=== PATIENT | female | born 1945 | race Caucasian/White ===

== ENCOUNTER 2017-04-05 20:20 | Observation (INO) | payer BC, OTHER ==
[2017-04-05] MEDS ORDERED: Ondansetron INJ* 2 MG/ML VIAL IV ONE (21:37)
[2017-04-05] MEDS ORDERED: Labetalol IV* 5 MG/ML 20 ML VIAL IV PUSH ONE ×2 (21:46→22:29)
[2017-04-05] MEDS: NS 0.9% 1000 ML* 1,000 ML IV SCH (21:59)
[2017-04-05 22:16] LABS: Hematocrit 45 % (35-47); Hemoglobin 15.1 g/dl (12.0-16.0); Mean Corpuscular HGB Conc 34 g/dl (31-36); Mean Corpuscular Hemoglobin 29 pg (27-31); Mean Corpuscular Volume 87 fL (80-97); Mean Platelet Volume 8 um3 (7.4-10.4); Red Blood Count 5.11 10^6/ul (4.0-5.4); Red Cell Distribution Width 14 % (10.5-15); White Blood Count 6.7 10^3/ul (3.5-10.8)
[2017-04-05 22:27] LABS: Albumin 4.3 g/dL (3.2-5.2); C Reactive Protein 2.25 mg/L (< 5.00); Calcium 9.9 mg/dL (8.6-10.3); EGFR African American 89.6 (>60); EGFR Non-African American 69.7 (>60); Globulin 2.7 g/dL (2-4); Magnesium 1.9 mg/dL (1.9-2.7); Potassium 3.8 mmol/L (3.5-5.0); Total Bilirubin 0.8 mg/dL (0.2-1.0)
[2017-04-05 22:48] LABS: TSH (Thyroid Stimulating Horm) 1.11 mcIU/mL (0.34-5.60)
--- NOTE | 2017-04-05 23:00 | ED ---
Elizabeth Sprague Rebecca, scribed for Dennis Villa MD on 04/05/17 at 2145 . Headache - HPI Summary HPI Summary: Pt is a 71 y/o F who presents to ED c/o AVALOS. Sx began gradually at approximately 1300 this afternoon and has been predominantly located in the occipital region, though it is now frontal. Pain alternates between 8-9/10 and is characterized as throbbing with sx aggravated and alleviated by nothing. Additionally c/o hypertension with SBP in the 200s along with N/V. Denies visual, speech, hearing or swallowing changes, numbness, weakness, tingling, numbness, unsteady gait, CP, abd pain, back pain and SOB. Pt was referred to [facility] ED by Dr. Matos today. PMHx HTN. - History Of Current Complaint Chief Complaint: EDHeadache Stated Complaint: HEADACHE/VOMITING Time Seen by Provider: 04/05/17 21:39 Hx Obtained From: Patient Onset/Duration: Gradual Onset, Still Present Currently Pain Is: Severe - 8-9/10 Character: Throbbing Location of Headache: Frontal, Occipital Aggravating Factor: Nothing Allevating Factors: Nothing Associated Signs And Symptoms: Nausea, Vomiting, Other (Noted In Comments) - Hypertension - Allergies/Home Medications Allergies/Adverse Reactions: Allergies Allergy/AdvReac Type Severity Reaction Status Date / Time Morphine Allergy Intermediate Nausea And Verified 04/05/17 20:46 Vomiting Sulfa Drugs Allergy Intermediate Airway Verified 04/05/17 20:46 Obstruction PMH/Surg Hx/FS Hx/Imm Hx Endocrine/Hematology History: Reports: Hx Thyroid Disease - hypothyroid Denies: Hx Diabetes Cardiovascular History: Reports: Hx Atrial Fibrillation, Hx Hypertension Denies: Hx Pacemaker/ICD Respiratory History: Denies: Hx Asthma, Hx Chronic Obstructive Pulmonary Disease (COPD) GI History: Denies: Hx Ulcer History: Denies: Hx Renal Disease Sensory History: Reports: Hx Hearing Aid Psychiatric History: Denies: Hx Panic Disorder - Cancer History Hx Chemotherapy: No Hx Radiation Therapy: No - Surgical History Surgery Procedure, Year, and Place: VEIN STRIPPING BILATERAL; BREAST BENIGN BIOPSY, RT WRIST HARWARE PUT IN AND REMOVED, LAPROSCOPY Infectious Disease History: No Infectious Disease History: Reports: Hx Shingles - left flank, ~ 20 years ago Denies: Hx Clostridium Difficile, Hx Hepatitis, Hx Human Immunodeficiency Virus (HIV), Hx of Known/Suspected MRSA, Hx Tuberculosis - had vaccine, Hx Known /Suspected VRE, Hx Known/Suspected VRSA, History Other Infectious Disease, Traveled Outside the [place] in Last 30 Days - Family History Known Family History: Positive: Hypertension Negative: Cardiac Disease, Diabetes - Social History Alcohol Use: None Hx Substance Use: No Substance Use Type: Reports: None Hx Tobacco Use: No Smoking Status (MU): Never Smoked Tobacco Review of Systems Positive: Other - Hypertension Positive: Other - Negative: visual changes Positive: Other - Negative: hearing and swallowing changes Negative: Chest Pain Negative: Shortness Of Breath Positive: Vomiting, Nausea. Negative: Abdominal Pain Positive: Other - NEGATIVE: back pain Neurological: Other - NEGATIVE: tingling, unsteady gait Positive: Headache. Negative: Weakness, Numbness All Other Systems Reviewed And Are Negative: Yes Physical Exam Triage Information Reviewed: Yes Vital Signs On Initial Exam: Initial Vitals Temp Pulse Resp BP Pulse Ox 97.5 F 79 16 209/96 99 04/05/17 20:41 04/05/17 20:41 04/05/17 20:41 04/05/17 20:41 04/05/17 20:41 Vital Signs Reviewed: Yes Appearance: Positive: Well-Appearing, No Pain Distress Skin: Positive: Skin Color Reflects Adequate Perfusion Head/Face: Positive: Normal Head/Face Inspection Eyes: Positive: EOMI, PAGE ENT: Positive: Normal ENT inspection Neck: Positive: Nontender Respiratory/Lung Sounds: Positive: Clear to Auscultation, Breath Sounds Present Cardiovascular: Positive: RRR. Negative: Murmur Abdomen Description: Positive: Nontender Musculoskeletal: Positive: Strength/ROM Intact Neurological: Positive: Sensory/Motor Intact, Alert, Oriented to Person Place, Time, CN Intact II-III, Finger to Nose - normal, Speech Normal. Negative: Receptive Aphasia, Expressive Aphasia Psychiatric: Positive: Normal - Ba Coma Scale Best Eye Response: 4 - Spontaneous Best Motor Response: 6 - Obeys Commands Best Verbal Response: 5 - Oriented Coma Scale Total: 15 Diagnostics - Vital Signs Vital Signs Temp Pulse Resp BP Pulse Ox 04/05/17 20:41 97.5 F 79 16 209/96 99 - Laboratory Result Diagrams: 04/05/17 21:58 04/05/17 21:58 Lab Statement: Any lab studies that have been ordered have been reviewed, and results considered in the medical decision making process. Re-Evaluation - Re-Evaluation First Eval Re-Evaluation Time: 22:30 Change: Unchanged Comment: the patient received 10 mg of labetalol. Neuro exam still non focal. Her headache is unchanged, and her BP is little changed. 190/90. Will give 20 mg IV labetalol now. Second Eval Re-Evaluation Time: 22:49 Change: Improved Comment: She reports the pulsing is gone now from her headache and it is improving. Her BP is now 167/70s after getting the extra 20 mg of labetalol. At this point will wait on giving more labetalol to see Headache Course/Dx - Course Course Of Treatment: 71 yr old female with hypertensive urgency and headache . Admit to hospitalists for further management. - Diagnoses Provider Diagnoses: Hypertensive urgency, Headache - Physician Notifications Discussed Care Of Patient With: Joey Caballero Time Discussed With Above Provider: 22:33 - Critical Care Time Critical Care Time: 30-74 min Discharge - Discharge Plan Condition: Good Disposition: OTHER Discharge Disposition Comment: sign out Dr Cabrera at [address] pend and dispo pending Referrals: Lele Matos MD [Primary Care Provider] - The documentation as recorded by the Elizabeth benjamin Rebecca accurately reflects the service I personally performed and the decisions made by me, Dennis Villa MD.
--- NOTE | 2017-04-05 23:51 | HP ---
H&P (Free Text) History and Physical: PCP: Shawn Matos MD Date/Time: 04/05/2017 5023 CC: occipital AVALOS w/ vomiting HPI: Mrs De Anda is a 71YO female HX AFIB, SVT, HTN who after exercising experienced the gradual onset around 1300 of an initially occipital headache which became severe rated at 8-9/10, migrated to the frontal area, and became associated with N/V, but no photophobia. She denies chest pain, SOB, visual changes, focal W/N/T, change in speech/swallow, or other issues. There were no identified exacerbating or alleviating factors. She was found to be quite hypertensive with a systolic in the 200s and treatment for this improved her headache. PMedHx AFIB, paroxysmal SVT syncope HTN hypothyroidism osteoporosis Ambulatory Orders Levothyroxine TAB* [Synthroid 25 MCG TAB*] 25 mcg PO EVERY OTHER DAY 09/23/15 Levothyroxine TAB* [Synthroid TAB*] 50 mcg PO EVERY OTHER DAY 09/23/15 Calcium 1,200 mg PO DAILY 06/14/16 Cholecalciferol [Vitamin D-3] 2,000 unit PO DAILY 06/14/16 Zolpidem TAB* [Ambien*] 2.5 mg PO BEDTIME PRN 06/14/16 Apixaban* [Eliquis*] 5 mg PO BID 04/05/17 Flecainide TAB(NF) 50 mg PO BID 04/05/17 Teriparatide (Recombinant) [Forteo] 600 mcg SC DAILY 04/05/17 Allergies Morphine Allergy (Intermediate, Verified 04/05/17 20:46) Nausea And Vomiting Sulfa Drugs Allergy (Intermediate, Verified 04/05/17 20:46) Airway Obstruction Pt states occurred many years ago, states she felt her throat was constricted but did not consider this a severe reaction, did not require medication to resolve. PSurgHx tonsillectomy implanted owner ORIF R wrist BLE vein stripping SocHx: no tobacco, alcohol, or recreational drugs; FamHx: Mother passed in her 80's 2nd "just stopped eating". Father passed in his 70s 2nd "heart condition". Younger brother passed 2nd complications of a knife attack. ROS: as above, otherwise reviewed and all were negative vitals: Vital Signs Temp 36.4 C 04/05/17 20:41 Pulse 88 04/05/17 23:01 Resp 26 04/05/17 23:01 BP 163/78 04/05/17 22:45 Pulse Ox 99 04/05/17 23:01 Intake & Output 04/05/17 04/05/17 04/06/17 11:59 23:59 11:59 Weight 49.895 kg Constitutional: NAD, normally developed, well-nourished white female HEENM: atraumatic; sclera/conjunctiva: non-icteric/clear; hearing: clinically mildly decreased; oropharynx: clear, mucosa moist Neck: soft tissue: non-tender; thyroid: normal Pulmonary: clear to auscultation bilaterally, good aeration, no accessory muscle use CV: TIR/IR, normal S1S2, no carotid bruit, no jugular venous distention, 2+ B DP /PT, no edema Abdominal: soft, non-distended, non-tender, no rebound/guarding/rigidity, normoactive bowel sounds, no hepatosplenomegaly or masses, no costovertebral angle tenderness Musculoskeletal: general: grossly intact; gait: stable Integumental: normal appearance and texture of exposed skin Psychiatric orientation: AA&O to PPS affect: calm mood: cooperative eye contact: good to fair content: reliable responses: timely insight: good Testing: Lab Results 04/05/17 04/05/17 04/05/17 Range/Units 21:40 21:58 21:58 WBC (3.5-10.8) 10^3/ul RBC (4.0-5.4) 10^6/ul Hgb (12.0-16.0) g/dl Hct (35-47) % MCV (80-97) fL MCH (27-31) pg MCHC (31-36) g/dl RDW (10.5-15) % Plt Count (150-450) 10^3/ul MPV (7.4-10.4) um3 Neut % (Auto) (38-83) % Lymph % (Auto) (25-47) % [place] % (Auto) (1-9) % Eos % (Auto) (0-6) % Baso % (Auto) (0-2) % Absolute Neuts (auto) (1.5-7.7) 10^3/ul Absolute Lymphs (auto) (1.0-4.8) 10^3/ul Absolute Monos (auto) (0-0.8) 10^3/ul Absolute Eos (auto) (0-0.6) 10^3/ul Absolute Basos (auto) (0-0.2) 10^3/ul Absolute Nucleated RBC 10^3/ul Nucleated RBC % INR (Anticoag Therapy) 0.97 (0.89-1.11) APTT 29.6 (26.0-36.3) seconds Sodium 136 (133-145) mmol/L Potassium 3.8 (3.5-5.0) mmol/L Chloride 96 L (101-111) mmol/L Carbon Dioxide 31 (22-32) mmol/L Anion Gap 9 (2-11) mmol/L BUN 17 (6-24) mg/dL Creatinine 0.81 (0.51-0.95) mg/dL Est GFR ( Amer) 89.6 (>60) Est GFR (Non-Af Amer) 69.7 (>60) BUN/Creatinine Ratio 21.0 H (8-20) Glucose 127 H (70-100) mg/dL Lactic Acid (0.5-2.0) mmol/L Calcium 9.9 (8.6-10.3) mg/dL Magnesium 1.9 (1.9-2.7) mg/dL Total Bilirubin 0.80 (0.2-1.0) mg/dL AST 26 (13-39) U/L ALT 18 (7-52) U/L Alkaline Phosphatase 71 (34-104) U/L Troponin I 0.00 (<0.04) ng/mL C-Reactive Protein 2.25 (< 5.00) mg/L Total Protein 7.0 (6.4-8.9) g/dL Albumin 4.3 (3.2-5.2) g/dL Globulin 2.7 (2-4) g/dL Albumin/Globulin Ratio 1.6 (1-3) TSH 1.11 (0.34-5.60) mcIU/mL Urine Color Straw Urine Appearance Clear Urine pH 8.0 (5-9) Ur Specific [place] 1.008 L (1.010-1.030) Urine Protein Negative (Negative) Urine Ketones Trace H (Negative) Urine Blood Negative (Negative) Urine Nitrate Negative (Negative) Urine Bilirubin Negative (Negative) Urine Urobilinogen Negative (Negative) Ur Leukocyte Esterase Negative (Negative) Urine Glucose 1+(50 mg/dl) H (Negative) 04/05/17 04/05/17 Range/Units 21:58 21:58 WBC 6.7 (3.5-10.8) 10^3/ul RBC 5.11 (4.0-5.4) 10^6/ul Hgb 15.1 (12.0-16.0) g/dl Hct 45 (35-47) % MCV 87 (80-97) fL MCH 29 (27-31) pg MCHC 34 (31-36) g/dl RDW 14 (10.5-15) % Plt Count 273 (150-450) 10^3/ul MPV 8 (7.4-10.4) um3 Neut % (Auto) 79.3 (38-83) % Lymph % (Auto) 12.1 L (25-47) % [place] % (Auto) 7.8 (1-9) % Eos % (Auto) 0.6 (0-6) % Baso % (Auto) 0.2 (0-2) % Absolute Neuts (auto) 5.3 (1.5-7.7) 10^3/ul Absolute Lymphs (auto) 0.8 L (1.0-4.8) 10^3/ul Absolute Monos (auto) 0.5 (0-0.8) 10^3/ul Absolute Eos (auto) 0 (0-0.6) 10^3/ul Absolute Basos (auto) 0 (0-0.2) 10^3/ul Absolute Nucleated RBC 0 10^3/ul Nucleated RBC % 0 INR (Anticoag Therapy) (0.89-1.11) APTT (26.0-36.3) seconds Sodium (133-145) mmol/L Potassium (3.5-5.0) mmol/L Chloride (101-111) mmol/L Carbon Dioxide (22-32) mmol/L Anion Gap (2-11) mmol/L BUN (6-24) mg/dL Creatinine (0.51-0.95) mg/dL Est GFR ( Amer) (>60) Est GFR (Non-Af Amer) (>60) BUN/Creatinine Ratio (8-20) Glucose (70-100) mg/dL Lactic Acid 0.9 (0.5-2.0) mmol/L Calcium (8.6-10.3) mg/dL Magnesium (1.9-2.7) mg/dL Total Bilirubin (0.2-1.0) mg/dL AST (13-39) U/L ALT (7-52) U/L Alkaline Phosphatase (34-104) U/L Troponin I (<0.04) ng/mL C-Reactive Protein (< 5.00) mg/L Total Protein (6.4-8.9) g/dL Albumin (3.2-5.2) g/dL Globulin (2-4) g/dL Albumin/Globulin Ratio (1-3) TSH (0.34-5.60) mcIU/mL Urine Color Urine Appearance Urine pH (5-9) Ur Specific [place] (1.010-1.030) Urine Protein (Negative) Urine Ketones (Negative) Urine Blood (Negative) Urine Nitrate (Negative) Urine Bilirubin (Negative) Urine Urobilinogen (Negative) Ur Leukocyte Esterase (Negative) Urine Glucose (Negative) ECG, personally reviewed: NSR rate 77, no ischemia; recheck ECG for rhythm change: AFIB RVR CT brain WO, personally reviewed: No acute brain parenchymal abnormality. No hemorrhage, mass, or acute territorial infarct. Age-related involutional changes and chronic small vessel ischemic changes, including basal ganglia hypodensities that are similar to signal abnormalities sen on 12/02/2011 MRI. Clear visualized paranasal sinuses. Visualized mastoid air cells clear. Impression: 71F presenting with hypertensive urgency, systolic >200 associated with occipital headache & N/V DIAGNOSIS & PLAN Primary hypertensive urgency : maintain BP <170 overnight : pain control : anti-emetics : supplemental oxygen : supportive care AFIB, paroxysmal w/ RVR : AFIB/RVR developed after labetalol 10mg x1 & 20mg x1 : metoprolol IV PRN for rate control : once in AFIB systolic decreased to 110s w/o neurologic symptoms Secondary HX SVT : no acute issues HTN : review meds once reconciled hypothyroidism : continue levothyroxine Admission Rational: CDU observation for hypertensive urgency DVTp: SCDs Code Status: full HCP:
[2017-04-05 23:56] LABS: Urine Bilirubin Negative (Negative); Urine Glucose 1+(50 mg/dL) (Negative); Urine Nitrite Negative (Negative)
[2017-04-06] MEDS ORDERED: hydrALAZINE IV* 20 MG/ML VIAL IV PRN (00:04)
[2017-04-06] MEDS ORDERED: HYDROmorphone INJ* 1 MG/ML CARPUJECT SYRINGE IV PRN (00:04)
[2017-04-06] MEDS ORDERED: Acetaminophen TAB* 325 MG PO PRN (00:04)
[2017-04-06] MEDS ORDERED: CMCS:Melatonin (NF) 3 MG TAB PO PRN (00:04)
[2017-04-06] MEDS ORDERED: Zolpidem TAB* 5 MG PO PRN (00:08)
[2017-04-06] MEDS ORDERED: traMADol TAB* 50 MG PO PRN (00:18)
[2017-04-06] MEDS ORDERED: Ondansetron INJ* 2 MG/ML VIAL IV PRN (00:18)
[2017-04-06] MEDS ORDERED: Metoprolol Tartrate IV* 1 MG/ML 5 ML VIAL IV ONE ×2 (01:01)
[2017-04-06] MEDS ORDERED: Metoprolol Tartrate IV* 1 MG/ML 5 ML VIAL IV PRN (01:04)
[2017-04-06] MEDS: NS 0.9% 1000 ML* 1,000 ML IV SCH (01:46)
[2017-04-06] MEDS ORDERED: Omeprazole CAP* 20 MG PO SCH (06:00)
[2017-04-06] MEDS ORDERED: Levothyroxine TAB* 50 MCG TAB PO SCH (06:00)
--- NOTE | 2017-04-06 07:44 | RAD ---
HISTORY: Headache COMPARISONS: MRI dated December 02, 2011 TECHNIQUE: Multiple contiguous axial CT scans were obtained of the head without intravenous contrast. FINDINGS: HEMORRHAGE/INFARCT: There is no hemorrhage or acute infarct. MASSES/SHIFT: There is no mass or shift. EXTRA-AXIAL SPACES: There are no extra-axial fluid collections. SULCI AND VENTRICLES: The sulci and ventricles are normal in size and position for the patient's stated age. CEREBRUM: There is patchy hypoattenuation of the periventricular and subcortical white matter, corresponding to T2 signal abnormalities noted on the previous MRI.. BRAINSTEM: There are no focal parenchymal abnormalities. CEREBELLUM: There are no focal parenchymal abnormalities. VESSELS: The vessels are grossly normal. PARANASAL SINUSES: The paranasal sinuses are clear. ORBITS: The orbits are unremarkable. BONES AND SOFT TISSUE: No bone or soft tissue abnormalities are noted. OTHER: None IMPRESSION: NO ACUTE INTRACRANIAL PATHOLOGY. CHRONIC SMALL VESSEL ISCHEMIC CHANGES.
[2017-04-06 07:53] VITALS: BP 120/57
[2017-04-06] MEDS ORDERED: Docusate CAP* 100 MG PO SCH (09:00)
[2017-04-06] MEDS ORDERED: Flecainide TAB* 100 MG PO SCH (09:00)
[2017-04-06] MEDS ORDERED: Metoprolol Succinate XL TAB* 25 MG PO SCH (09:00)
[2017-04-06] MEDS ORDERED: Apixaban* 5 MG TAB PO SCH (09:00)
--- NOTE | 2017-04-06 13:35 | DS ---
CC: Dr. Matos; Dr. 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 She felt fine, it was not particularly stressful. This is a normal activity for her. She went to a [employer] class in an unheated gym, there was a large fan. She said this was not particularly difficult or any problem. She left the class and walked through campus. It was a very hot day. She developed mild headache. She drove herself home. She thought she would work in her home office; however, the headache became more severe. She had nausea and vomiting. She called Dr. Matos's office. Her drove her to the emergency room. Her blood pressure was noted to be systolic in the 200s. She was in sinus rhythm. She was given intravenous metoprolol. Her blood pressure came down. Her nausea and vomiting resolved completely. I note that at 10:45 p.m. on 04/05/17, her blood pressure was 163/78; at 0049 hours on 04/06/17, blood pressure was 99/78; at 2 a.m. on 04/06/17, blood pressure was 108/56; at 7 :35 a.m. on 04/06/17, the day of discharge her blood pressure was 120/57. The patient had an episode of atrial fibrillation somewhere after midnight. She was aware of it and had palpitations. This is not unusual for her. I think she is aware of most if not all of her episodes of atrial fibrillation. She never gets headaches with them. She recalls having similar headache, nausea and vomiting many years ago when she was under very stressful circumstance in [place], giving back to back lectures for 2 days. She seemed to be completely at baseline with acceptable blood pressure and heart rate and had converted to sinus rhythm spontaneously. I have not made any changes in her medications. She received all of her usual medications on the morning of discharge. She will seek close followup with Dr. Espinosa and Dr. Matos, seeing one or both of them within a week. I note she monitors her blood pressure at home as well. Laboratory results were unremarkable. Glucose was 127, not surprising considering the stress she was under. I note she did have a CT scan of the brain, which showed no acute pathology. FINAL DIAGNOSES: 1. Headache, nausea, vomiting, and hypertension of unknown etiology. 2. History of atrial fibrillation. 3. Hypothyroidism. DISCHARGE MEDICATIONS: 1. Acetaminophen 650 mg every 6 hours p.r.n. 2. Metoprolol succinate 25 mg daily. 3. Levothyroxine 50 mcg alternating with 25 mcg. 4. Zolpidem 2.5 mg h.s. p.r.n. 5. Calcium 1200 mg daily. 6. Vitamin D 2000 units daily. 7. Flecainide 50 mg b.i.d. 8. Apixaban 5 mg b.i.d. 9. Teriparatide 600 mcg subcu daily. [id number]/[facility] #: [id number] MTDD
[2017-04-07] MEDS ORDERED: Levothyroxine TAB* 25 MCG TAB PO SCH (06:00)
== END 2017-04-06 09:55 | disposition home or self-care (01) ==
LOC: ED 20:20 → MEDTELE 04-06 00:02
PROVIDERS: ADMIT Hospitalist; ATTEND Internal Medicine
DX: R51 Headache (principal); I16.0 Hypertensive urgency; R11.2 Nausea with vomiting, unspecified; I67.82 Cerebral ischemia; I48.91 Unspecified atrial fibrillation; E03.9 Hypothyroidism, unspecified; Z79.899 Other long term (current) drug therapy; I51.7 Cardiomegaly; I47.1 Supraventricular tachycardia; I67.2 Cerebral atherosclerosis
CPT/HCPCS: 36415; 70450; 80053; 81003; 83605; 83735; 84443; 84484; 85025; 85610; 85730; 86140; 93005; 96374; 96375; 99283; A9270-GY; G0378; J2405; J3490

== ENCOUNTER 2018-03-21 07:31 | Observation (INO) | payer BC ==
[2018-03-21] MEDS ORDERED: Diazepam TAB(*) 5 MG ONE (08:23)
[2018-03-21] MEDS ORDERED: Lidocaine 1% INJ* 10 MG/ML 30 ML SDV ONE (08:44)
[2018-03-21] MEDS ORDERED: Midazolam* 1 MG/ML 5 ML VIAL (5 MG) ONE (08:52)
[2018-03-21] MEDS ORDERED: fentaNYL* 50 MCG/ML 2 ML VIAL (100 MCG VIAL) ONE (08:52)
[2018-03-21] MEDS ORDERED: Flumazenil* 0.1 MG/ML 5 ML MDV ONE (08:56)
[2018-03-21] MEDS ORDERED: Naloxone* 0.4 MG/ML 1 ML VIAL ONE (08:56)
[2018-03-21] MEDS ORDERED: ceFAZolin VIAL 1 GM in NS *SYRINGE * * 10 ML ONE (09:00)
[2018-03-21] MEDS ORDERED: ceFAZolin 2 GM in NS 0.9% 100 ml IVPB ONE (09:00)
[2018-03-21] MEDS ORDERED: Acetaminophen TAB* 325 MG PO PRN (10:07)
[2018-03-21] MEDS ORDERED: Zolpidem TAB* 5 MG PO PRN (10:10)
[2018-03-21] MEDS: oxyCODONE/Acetamin 5/325 MG* TAB PO PRN ×3 (11:58→20:16)
--- NOTE | 2018-03-21 12:18 | RAD ---
HISTORY: S/P Device Implant COMPARISONS: March 07, 2016 VIEWS: 1: frontal portable view of the chest at 11:48 AM FINDINGS: LINES AND TUBES: A right-sided pacemaker is noted. CARDIOMEDIASTINAL SILHOUETTE: The cardiomediastinal silhouette is normal for portable technique. PLEURA: The costophrenic angles are sharp. No pleural abnormalities are noted. There is no appreciable pneumothorax. LUNG PARENCHYMA: There is hyperinflation. ABDOMEN: The upper abdomen is clear. There is no subphrenic gas. BONES AND SOFT TISSUES: No bone or soft tissue abnormalities are noted. IMPRESSION: NO ACTIVE CARDIOPULMONARY DISEASE.
[2018-03-21] MEDS: ceFAZolin 1 GM VIAL(*) 1 GM in NS 0.9% 50 ML* 50 ML IVPB SCH ×2 (15:23→23:06)
[2018-03-21] MEDS ORDERED: amLODIPine TAB* 5 MG PO PRN (16:00)
[2018-03-21] MEDS: Flecainide TAB* 100 MG PO SCH (20:16)
--- NOTE | 2018-03-21 22:52 | OP ---
CC: Dr. Lele Matos.* DATE OF OPERATION: 03/21/18 - ROOM #431 DATE OF : 45. SURGEON: Evelio Espinosa MD. ANESTHESIA: Local anesthesia with conscious sedation. PRE-OP DIAGNOSIS: Sick sinus syndrome, atrial fibrillation. POST-OP DIAGNOSIS: Sick sinus syndrome, atrial fibrillation. OPERATIVE PROCEDURE: Dual-chamber pacemaker implantation. ESTIMATED BLOOD LOSS: Nil. COMPLICATIONS: None. INDICATIONS: The patient is a 72-year-old female who has paroxysmal atrial fibrillation. The patient had an event monitor placed 2 years ago because of episodes of syncope. Her event monitor recently has shown episodes of significant bradycardia as well as 5 second pauses when she converts from atrial fibrillation to normal sinus rhythm. The patient has also showed atrial fibrillation up to 140 beats per minute. Permanent pacemaker was recommended for maximization of medical therapy. DESCRIPTION OF PROCEDURE: The patient was brought to the procedure room in a fasting state. Informed consent had been obtained prior to the procedure. All labs had been reviewed. The patient was placed supine on the procedure table and her right deltopectoral area was cleaned and draped in the usual fashion. 1 % lidocaine was used for local anesthesia. Under ultrasound guidance, the axillary vein was entered by a modified Seldinger technique and a guidewire was placed. A second guidewire was placed under the same technique. A 3-cm incision was made in the pectoral area and blunt dissection was carried down to the pectoral fascia and a pocket was fashioned for the pacemaker. Over the first guidewire, a 7-Burmese sheath introducer was placed through which a right ventricular lead was advanced to the RV apex. The right ventricular lead is a Medtronic model 5076, serial number [id number]. It had a R-wave sensitivity of 4.2, impedance 775 ohms, threshold 0.7 volts at 0.5 milliseconds. The ventricular lead was sutured to the pectoral fascia. Over the second guidewire , a 7-Burmese sheath introducer was placed through which a right atrial lead was advanced to the high right atrium. The right atrial lead is a Medtronic model 5076, serial number [id number]. It had P wave sensitivity of 1.1, impedance of 574 ohms, threshold 1.9 Volts at 0.5 milliseconds. The atrial lead was sutured to the pectoral fascia using 0 silk. A generator was attached appropriately to the atrioventricular lead. The generator is a Pixelpipe model W1DR01, serial number [id number]. The device was placed to the pocket and surgical incision was closed in 3 layers and subcutaneous. The patient was returned to the holding area in stable condition. [id number]/[facility] #: [id number] MTDChar
[2018-03-22] MEDS ORDERED: amLODIPine TAB* 5 MG PO ONE (05:00)
[2018-03-22] MEDS ORDERED: Levothyroxine TAB* 50 MCG TAB PO SCH (06:00)
[2018-03-22] MEDS: ceFAZolin 1 GM VIAL(*) 1 GM in NS 0.9% 50 ML* 50 ML IVPB SCH (07:40)
[2018-03-22] MEDS: Flecainide TAB* 100 MG PO SCH (08:28)
[2018-03-22] MEDS ORDERED: Metoprolol Succinate XL TAB* 25 MG PO SCH (09:00)
--- NOTE | 2018-03-22 09:53 | RAD ---
HISTORY: S/P Device Implant COMPARISONS: March 21, 2018 VIEWS: 4: Frontal dual-energy and lateral views of the chest. FINDINGS: CARDIOMEDIASTINAL SILHOUETTE: The cardiomediastinal silhouette is normal. RASHAWN: The rashawn are normal. PLEURA: The costophrenic angles are sharp. No pleural abnormalities are noted. LUNG PARENCHYMA: There is hyperinflation with flattening of the diaphragm and expansion of the AP diameter of the chest. ABDOMEN: The upper abdomen is clear. There is no subphrenic gas. BONES AND SOFT TISSUES: A right-sided pacemaker is noted. OTHER: None. IMPRESSION: HYPERINFLATION. NO ACTIVE CARDIOPULMONARY DISEASE.
[2018-03-22 11:42] VITALS: BP 144/74
[2018-03-23] MEDS ORDERED: Levothyroxine TAB* 25 MCG TAB PO SCH (06:00)
--- NOTE | 2018-03-24 07:19 | DS ---
CC: Dr. Espinosa; Dr. Matos * DISCHARGE SUMMARY: DATE OF ADMISSION: 03/21/18 DATE OF DISCHARGE: 03/22/18 HISTORY OF PRESENT ILLNESS AND HOSPITAL COURSE: Brendon De Anda is a 72-year-old woman with a history of paroxysmal atrial fibrillation who had an implantable event monitor and when Dr. Espinosa evaluated her on 03/17/18, he found tachybrady syndrome with evidence of slow sinus node recovery time (over 5-second pauses between atrial fibrillation and resumption of normal sinus rhythm). The patient underwent dual chamber pacemaker implantation, 03/21/18. Today, the patient has had some mild incisional soreness but otherwise no complaints. She denies shortness of breath or racing of the heart. PAST MEDICAL HISTORY: 1. Paroxysmal atrial fibrillation. 2. Tachybrady syndrome. 3. Thyroid disease. 4. Degenerative arthritis. 5. Seasonal allergies. 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 Never smoked. No history of alcohol or recreational drug use. FAMILY HISTORY: Positive for cardiac disease with her father. ALLERGIES: The patient has allergies to MORPHINE, SULFA, CLARITHROMYCIN. PHYSICAL EXAMINATION: On the day of discharge, the patient was afebrile, pulse was 72, respiratory rate was 16, oxygen saturation 98% to 99% on room air, and blood pressure 144/74. She is 5 feet 4 inches, weighs 102 pounds, with a BMI of 18. General Appearance: Lean, fit-appearing older woman in no acute distress. Psychologically pleasant and cooperative. Neurological: Awake, alert , oriented to person, place, and time. Cranial nerves II through XII intact. Grossly normal sensory and motor function in the upper and lower extremities. Normal gait. Skin: Warm and dry. No cyanosis or rashes. The incision in the right subclavian fossa has no evidence of infection, hematoma, or ecchymosis. HEENT: Mucous membranes moist. Neck without increased JVP. Breath sounds clear with good effort. No wheezes, rales, or rhonchi. Coronary: S1 and S2 regular without murmurs or rubs. Abdomen: Soft. Extremities: Free of edema and warm. They are equal in size. Chest x-ray reviewed showing both leads with good placement and no pneumothorax. Pacemaker interrogation today confirmed she has a [employer] device programmed in AAI/DDD mode with the lower rate of 60 beats a minute and upper tracking rate of 130 beats a minute. Overnight, she paced the atrium 8.3% of the time and the ventricle less than 0.1 % of the time. Thresholds are stable. Atrial lead senses P-waves at 1.8 millivolts, atrial lead impedance 418 Ohms, and an atrial pacing threshold of 0.75 volts at 0.4 msec. The ventricular leads shows R-wave sensing at 6.3 millivolts, ventricular lead impedance of 513 Ohms, and a ventricular pacing threshold of 0.5 volts at 0.4 msec. Overnight, there were no tachyarrhythmias. The patient's 12-lead ECG showed normal sinus rhythm with no significant abnormalities and with a magnet showed dual chamber pacing was 1:1 atrial and ventricular capture. In summary, Brendon eD Anda is a 72-year-old woman with paroxysmal atrial fibrillation, evidence of sick sinus syndrome with slow sinus node recovery time who underwent uncomplicated dual-chamber pacemaker implantation. MEDICATIONS: She will be sent home on: 1. Keflex 250 mg t.i.d. (new). 2. Tylenol p.r.n. 3. Zolpidem 2.5 mg q.h.s. p.r.n. 4. Forteo. 5. Toprol XL 25 mg a day. 6. Synthroid. 7. Flecainide 100 mg b.i.d. 8. Amlodipine 5 mg a day. 9. Apixaban 5 mg b.i.d., to resume the day after discharge. 10. Calcium. 11. Vitamin D. She is to follow up with Dr. Espinosa in 1 week for a wound check. [id number]/[facility] #: [id number] [facility]ENTERChar
== END 2018-03-22 13:05 | disposition home or self-care (01) ==
LOC: CHICATH 07:31 → MEDTELE 10:40
PROVIDERS: ADMIT Specialist; ATTEND Specialist
DX: I49.5 Sick sinus syndrome (principal); I48.0 Paroxysmal atrial fibrillation; Z79.01 Long term (current) use of anticoagulants; Z79.899 Other long term (current) drug therapy; Z88.2 Allergy status to sulfonamides; Z88.8 Allergy status to other drugs, medicaments and biological substances
CPT/HCPCS: 33208; 71045; 71046; 93005; 99156; 99157; A9270-GY; C1785; C1898; G0378; J0690; J2250; J2310; J3010

== ENCOUNTER 2018-09-12 10:19 | Day surgery (SDC) | payer BC ==
[~2018-09-12 10:19] MED LIST: Acetaminophen TAB* 325 MG PO PRN; Buffered Lidocaine 1% SYRIN* 1 ML/SYRINGE INTRADERM ONE
[2018-09-12] MEDS ORDERED: Midazolam* 1 MG/ML 2 ML VIAL (2 MG) ONE (11:26)
[2018-09-12] MEDS ORDERED: fentaNYL* 50 MCG/ML 2 ML VIAL (100 MCG VIAL) ONE (11:26)
[2018-09-12] MEDS ORDERED: Lidocaine 1%* 5 ML VIAL ONE (11:27)
[2018-09-12] MEDS ORDERED: Tetracaine 0.5% OPTH.SOL 4 ML* 1 DROP BTL ONE (11:27)
[2018-09-12] MEDS ORDERED: Tropicamide 1% OPTH.SOL* BTL ONE (11:27)
[2018-09-12] MEDS ORDERED: Ketorolac 0.5% OPHTH (NF) 0.5 % 5 ML BTL ONE (11:27)
[2018-09-12] MEDS ORDERED: Cyclopentolate 1% OPTH.SOL* 2 ML BTL ONE (11:27)
[2018-09-12] MEDS ORDERED: Neomycin/Polymy/Dex OPHTH.OIN* 3.5 GM ONE (11:27)
[2018-09-12 12:58] VITALS: BP 189/84
--- NOTE | 2018-09-12 13:17 | OP ---
DATE OF OPERATION/DATE OF DICTATION: 09/12/2018 - [facility] DATE OF : 1945. SURGEON: Dr. Neel Rodas. PIN STICKER: None. ANESTHESIA: Topical with intravenous sedation. PRE-OP DIAGNOSIS: Cataract, right eye. POST-OP DIAGNOSIS: Cataract, right eye. OPERATIVE PROCEDURE: Phacoemulsification and cataract extraction with posterior chamber intraocular lens implant, right eye. COMPLICATIONS: None. BLOOD LOSS: None. DESCRIPTION OF PROCEDURE: The patient was brought to the operating room and received a small amount of intravenous sedation. A drop of Tetracaine was placed in her right eye. She was prepped and draped in the usual sterile fashion for ophthalmic surgery and attention was directed to the right eye where a speculum was placed. A paracentesis was created at the 11 o'clock position and 0.1 cc of 1 percent preservative-free Lidocaine was injected into the anterior chamber followed by DisCoVisc. The eye was digitally stabilized while a 2.75 mm keratome was used to create a triplanar clear corneal incision at the 9 o'clock position. A continuous curvilinear capsulorrhexis was created with a cystotome and Utrata forceps. BSS on a cannula was used to hydrodissect the lens from the capsule. Phacoemulsification was performed in a divide-and- conquer technique to create four fragments which were removed. Residual cortical material was removed with irrigation and aspiration. DisCoVisc was used to inflate the capsular bag and an AUOOTO 20.0 diopter lens was folded and inserted into the capsular bag. DisCoVisc was removed using irrigation and aspiration. BSS on a cannula was used to hydrate the corneal stroma and seal the wound. At the end of the case the pupil was round and the lens was centered. The eye was of normal pressure and the wound was water tight. The speculum was removed and topical Maxitrol ointment was placed on the surface of the eye. The eye was closed, patched and shielded and the patient was sent to the recovery room in stable condition with post operative instructions and follow-up appointment given. [id number]/[facility] #: [id number] MTDD
== END 2018-09-12 12:48 | disposition home or self-care (01) ==
LOC: OREAST 10:19
PROVIDERS: ATTEND Ophthalmology
DX: H25.11 Age-related nuclear cataract, right eye (principal); E03.9 Hypothyroidism, unspecified; I48.91 Unspecified atrial fibrillation; Z79.01 Long term (current) use of anticoagulants; M19.90 Unspecified osteoarthritis, unspecified site; F41.9 Anxiety disorder, unspecified
CPT/HCPCS: A9270-GY; J2250; J3010; V2632

== ENCOUNTER → 2018-09-19 07:57 | Day surgery (SDC) | payer BC ==
[~2018-09-19 07:57] MED LIST changes: +Cyclopentolate 1% OPTH.SOL* 2 ML BTL ONE; +Ketorolac 0.5% OPHTH (NF) 0.5 % 5 ML BTL ONE; +Lidocaine 1%* 5 ML VIAL ONE; +Midazolam* 1 MG/ML 2 ML VIAL (2 MG) ONE; +Neomycin/Polymy/Dex OPHTH.OIN* 3.5 GM ONE; +Phenylephrine 2.5% OPTH.SOL* 2 ML BTL ONE; +Tetracaine 0.5% OPTH.SOL 4 ML* 1 DROP BTL ONE; +Tropicamide 1% OPTH.SOL* BTL ONE; +fentaNYL* 50 MCG/ML 2 ML VIAL (100 MCG VIAL) ONE
[2018-09-19 10:25] VITALS: BP 183/79
--- NOTE | 2018-09-19 10:27 | OP ---
OPERATIVE REPORT: DATE OF OPERATION: 09/19/18 DATE OF : 45 SURGEON: Dr. Neel Rodas. SUPERVISOR FINISHING DEPARTMENT: None. ANESTHESIA: Topical with intravenous sedation. PRE-OP DIAGNOSIS: Cataract, left eye. POST-OP DIAGNOSIS: Cataract, left eye. OPERATIVE PROCEDURE: Phacoemulsification and cataract extraction with posterior chamber intraocular lens implant, left eye. COMPLICATIONS: None. BLOOD LOSS: None. OPERATIVE FINDINGS: The patient was brought to the operating room and received a small amount of int ravenous sedation. A drop of Tetracaine was placed in her left eye. She was prepped and draped in t he usual sterile fashion for ophthalmic surgery and attention was directed to the left eye where a sp eculum was placed. A paracentesis was created at the 5 o'clock position and 0.1 cc of 1 percent pres ervative-free Lidocaine was injected into the anterior chamber followed by DisCoVisc. The eye was di gitally stabilized while a 2.75 mm keratome was used to create a triplanar clear corneal incision at the 3 o'clock position. A continuous curvilinear capsulorrhexis was created with a cystotome and Utr ashely forceps. BSS on a cannula was used to hydrodissect the lens from the capsule. Phacoemulsificati on was performed in a vivuvr-qyv-hruzoim technique to create four fragments which were removed. Resi dual cortical material was removed with irrigation and aspiration. DisCoVisc was used to inflate the capsular bag and an AU00T0 18.0 diopter lens was folded and inserted into the capsular bag. DisCoVis c was removed using irrigation and aspiration. BSS on a cannula was used to hydrate the corneal stro ma and seal the wound. At the end of the case the pupil was round and the lens was centered. The eye was of normal pressure and the wound was water tight. The speculum was removed and topical Maxitrol ointment was placed on the surface of the eye. The eye was closed, patched and shielded and the pat ient was sent to the recovery room in stable condition with post operative instructions and follow-up appointment given. [id number]/[facility] #: [id number]
== END | disposition home or self-care (01) ==
LOC: OREAST 07:57
PROVIDERS: ATTEND Ophthalmology
DX: H25.12 Age-related nuclear cataract, left eye (principal); E03.9 Hypothyroidism, unspecified; I48.91 Unspecified atrial fibrillation; Z79.01 Long term (current) use of anticoagulants; M19.90 Unspecified osteoarthritis, unspecified site
CPT/HCPCS: A9270-GY; J2250; J3010; V2632

== ENCOUNTER 2019-10-20 17:10 | Inpatient (IN) | payer BC ==
[2019-10-20] MEDS ORDERED: fentaNYL 100 mcg/2 ml 50 MCG/ML VIAL IV SLOW PU ONE (17:19)
[2019-10-20] MEDS ORDERED: Morphine 4 MG/ML VIAL (1 ml) IV ONE (19:04)
[2019-10-20] MEDS ORDERED: Ondansetron 4 mg VIAL 2 MG/ML 2 ml VIAL IV ONE (19:04)
[2019-10-20 19:34] LABS: ABS Eosinophils 0.2 10^3/ul (0-0.6); ABS Lymphocytes 0.8 10^3/ul (1.0-4.8); ABS Monocytes 0.7 10^3/ul (0-0.8); Eosinophil % 1.6 %; Hematocrit 43 % (35-47); Hemoglobin 14.7 g/dL (12.0-16.0); Lymphocyte % 8.4 %; Mean Corpuscular HGB Conc 34 g/dL (31-36); Mean Corpuscular Hemoglobin 30 pg (27-31); Mean Corpuscular Volume 87 fL (80-97); Mean Platelet Volume 7.4 fL (7.4-10.4); Platelet Count 239 10^3/uL (150-450); Red Blood Count 4.91 10^6 /uL (3.70-4.87); Red Cell Distribution Width 14 % (10-15); White Blood Count 9.9 10^3/uL (3.5-10.8)
[2019-10-20] MEDS ORDERED: Labetalol IV 5 MG/ML 20 ml VIAL IV PUSH ONE (19:37)
[2019-10-20 19:50] LABS: INR 1.12 (0.82-1.09)
[2019-10-20 19:55] LABS: Albumin/Globulin Ratio 1.5 (1-3); BUN/Creatinine Ratio 29.8 (8-20); Calcium 9.9 mg/dL (8.6-10.3); EGFR African American 80.2 (>60); EGFR Non-African American 66.3 (>60); Globulin 2.7 g/dL (2-4); Potassium 3.8 mmol/L (3.5-5.0); Total Bilirubin 0.5 mg/dL (0.2-1.0); Total Protein 6.7 g/dL (6.4-8.9)
[2019-10-20 21:11] LABS: Magnesium 1.9 mg/dL (1.9-2.7)
[2019-10-20] MEDS ORDERED: Polyethylene Glycol 3350 17 GM PACKET PO PRN (21:16)
[2019-10-20] MEDS ORDERED: Magnesium Hydroxide LIQ 30 ML UDC PO PRN (21:16)
[2019-10-20] MEDS ORDERED: Senna TAB 8.6 mg TAB PO PRN (21:16)
[2019-10-20] MEDS: Morphine 2 MG/ML SYRINGE IV PRN (21:29)
[2019-10-20] MEDS ORDERED: Metoclopramide 5 MG/ML VIAL (10 mg) IV PRN (22:35)
[2019-10-20 22:44] LABS: Urine Appearance Cloudy; Urine Bilirubin Negative (Negative); Urine Blood Negative (Negative); Urine Color Yellow; Urine Glucose Negative (Negative); Urine Ketones Trace (Negative); Urine Nitrite Negative (Negative); Urine Protein Negative (Negative); Urine Urobilinogen Negative (Negative)
[2019-10-20] MEDS ORDERED: Morphine 2 MG/ML SYRINGE IV ONE (22:45)
[2019-10-21] MEDS: hydrALAZINE 20 mg/ml 1 ML Vial IV IV SLOW PU PRN (00:39)
[2019-10-21] MEDS: oxyCODONE/Acetamin 5/325 mg TAB PO PRN ×5 (01:16→21:59)
[2019-10-21] MEDS: Morphine 2 MG/ML SYRINGE IV PRN (03:55)
[2019-10-21 10:56] LABS: ABS Eosinophils 0.4 10^3/ul (0-0.6); ABS Lymphocytes 0.9 10^3/ul (1.0-4.8); Hematocrit 40 % (35-47); Hemoglobin 13.4 g/dL (12.0-16.0); Lymphocyte % 11.6 %; Mean Corpuscular HGB Conc 34 g/dL (31-36); Mean Corpuscular Hemoglobin 29 pg (27-31); Mean Corpuscular Volume 87 fL (80-97); Mean Platelet Volume 7.1 fL (7.4-10.4); Platelet Count 230 10^3/uL (150-450); Red Cell Distribution Width 14 % (10-15); White Blood Count 8.2 10^3/uL (3.5-10.8)
[2019-10-21 11:13] LABS: BUN/Creatinine Ratio 25.6 (8-20); EGFR African American 82.5 (>60); EGFR Non-African American 68.1 (>60); Potassium 3.6 mmol/L (3.5-5.0)
[2019-10-21 11:15] LABS: INR 1.21 (0.82-1.09)
[2019-10-22] MEDS: hydrALAZINE 20 mg/ml 1 ML Vial IV IV SLOW PU PRN (00:21)
[2019-10-22 06:27] LABS: ABS Eosinophils 0.3 10^3/ul (0-0.6); ABS Lymphocytes 0.8 10^3/ul (1.0-4.8); ABS Monocytes 1.2 10^3/ul (0-0.8); Eosinophil % 3.1 %; Hematocrit 42 % (35-47); Hemoglobin 14.3 g/dL (12.0-16.0); Lymphocyte % 7.7 %; Mean Corpuscular HGB Conc 34 g/dL (31-36); Mean Corpuscular Hemoglobin 30 pg (27-31); Mean Corpuscular Volume 87 fL (80-97); Mean Platelet Volume 7.7 fL (7.4-10.4); Platelet Count 219 10^3/uL (150-450); Red Blood Count 4.84 10^6 /uL (3.70-4.87); Red Cell Distribution Width 14 % (10-15); White Blood Count 9.8 10^3/uL (3.5-10.8)
[2019-10-22 06:31] LABS: INR 1.22 (0.82-1.09)
[2019-10-22 06:42] LABS: Calcium 9.1 mg/dL (8.6-10.3); EGFR African American 102.3 (>60); EGFR Non-African American 84.6 (>60); Potassium 4.1 mmol/L (3.5-5.0)
[2019-10-22] MEDS: Morphine 2 MG/ML SYRINGE IV PRN ×2 (07:48→17:13)
[2019-10-22] MEDS ORDERED: Bupivacaine 0.25% SDV 30 ML ONE (10:17)
[2019-10-22] MEDS ORDERED: Ketamine HCL 50 mg/ml 10 ml VIAL (500 MG) ONE (11:21)
[2019-10-22] MEDS ORDERED: Midazolam 5 mg/5 ml VIAL 1 mg/ml 5 ml VIAL (5 mg) ONE (11:21)
[2019-10-22] MEDS ORDERED: fentaNYL 100 mcg/2 ml 50 MCG/ML VIAL ONE (11:21)
[2019-10-22] MEDS ORDERED: ceFAZolin 2 GM PREMIX in ORs 2 GM/50 ML BAG ONE (11:43)
[2019-10-22] MEDS ORDERED: Lidocaine 2% PF 5 ML VIAL ONE (11:50)
[2019-10-22] MEDS ORDERED: Propofol 10 MG/ML 20 ML BTL ONE (11:50)
[2019-10-22] MEDS ORDERED: Succinylcholine 200 mg VIAL 20 mg/ml 10 ml VIAL (200 mg) ONE (11:52)
[2019-10-22] MEDS ORDERED: Phenylephrine 40 mcg/mL 10mL (400mcg) SYRINGE ONE (12:18)
[2019-10-22] MEDS ORDERED: EPHEDrine (Pressors) 50 MG/ML VIAL ONE (12:21)
[2019-10-22] MEDS ORDERED: Phenylephrine IV 10 MG/ML 1 ml VIAL ONE (12:26)
[2019-10-22] MEDS ORDERED: Dexamethasone IV 4 MG/ML VIAL 1 ml VIAL ONE (12:45)
[2019-10-22] MEDS ORDERED: Ondansetron 4 mg VIAL 2 MG/ML 2 ml VIAL ONE (13:26)
[2019-10-22] MEDS ORDERED: fentaNYL 100 mcg/2 ml 50 MCG/ML VIAL IV PRN (14:06)
[2019-10-22] MEDS ORDERED: Prochlorperazine 5 mg/ml 2 ml VIAL (10 mg) IV PRN (14:06)
[2019-10-22] MEDS ORDERED: HYDROcodone/ACETAMIN 5/325 mg TAB PO PRN (14:06)
[2019-10-22] MEDS ORDERED: Naloxone 0.4 mg VIAL 0.4 mg/ml 1 ml VIAL IV PRN (14:06)
[2019-10-22] MEDS ORDERED: ceFAZolin 1 GM* X 3 DOSES POST-OP Q8H (AddVan) IVPB SCH (16:00)
[2019-10-22] MEDS ORDERED: Lactated Ringers 1000 ml BAG 1,000 ML IV SCH (16:00)
[2019-10-22] MEDS: ceFAZolin 1 GM* X 3 DOSES POST-OP Q8H (AddVan) IVPB SCH (19:53)
[2019-10-22] MEDS ORDERED: Metoprolol Tartrate 5 mg VIAL 5 ml VIAL (1 mg/ml) IV PRN ×2 (23:57→23:58)
[2019-10-23] MEDS ORDERED: Diltiazem IV BAG D5W Premix 125 MG/125 ML BAG IV SCH (02:00)
[2019-10-23] MEDS: ceFAZolin 1 GM* X 3 DOSES POST-OP Q8H (AddVan) IVPB SCH ×2 (05:21→12:41)
[2019-10-23 06:01] LABS: Hematocrit 36 % (35-47); Hemoglobin 11.9 g/dL (12.0-16.0); Mean Corpuscular HGB Conc 33 g/dL (31-36); Mean Corpuscular Hemoglobin 29 pg (27-31); Mean Corpuscular Volume 88 fL (80-97); Mean Platelet Volume 7.4 fL (7.4-10.4); Platelet Count 196 10^3/uL (150-450); Red Cell Distribution Width 14 % (10-15); White Blood Count 9.8 10^3/uL (3.5-10.8)
[2019-10-23 06:19] LABS: Troponin I 0.01 ng/mL (<0.03)
[2019-10-23 06:20] LABS: BUN/Creatinine Ratio 25.3 (8-20); Calcium 8.4 mg/dL (8.6-10.3); EGFR African American 91.4 (>60); EGFR Non-African American 75.5 (>60); Magnesium 1.9 mg/dL (1.9-2.7); Potassium 4.1 mmol/L (3.5-5.0)
[2019-10-23 07:34] LABS: ABS Lymphocytes 0.7 10^3/ul (1.0-4.8); ABS Monocytes 1.6 10^3/ul (0-0.8); Eosinophil % 0.3 %; Lymphocyte % 6.9 %; Nucleated Red Blood Cells % 0.1
[2019-10-23] MEDS: oxyCODONE/Acetamin 5/325 mg TAB PO PRN ×3 (09:44→22:38)
[2019-10-24] MEDS: oxyCODONE/Acetamin 5/325 mg TAB PO PRN ×2 (08:07→17:22)
[2019-10-25] MEDS: oxyCODONE/Acetamin 5/325 mg TAB PO PRN ×2 (00:24→06:34)
[2019-10-25 04:51] LABS: ABS Eosinophils 0.6 10^3/ul (0-0.6); ABS Lymphocytes 0.9 10^3/ul (1.0-4.8); ABS Monocytes 1.1 10^3/ul (0-0.8); Eosinophil % 8.1 %; Hematocrit 33 % (35-47); Lymphocyte % 11.6 %; Mean Corpuscular HGB Conc 34 g/dL (31-36); Mean Corpuscular Hemoglobin 30 pg (27-31); Mean Corpuscular Volume 88 fL (80-97); Mean Platelet Volume 7.3 fL (7.4-10.4); Platelet Count 201 10^3/uL (150-450); Red Cell Distribution Width 14 % (10-15); White Blood Count 7.5 10^3/uL (3.5-10.8)
[2019-10-25 05:06] LABS: BUN/Creatinine Ratio 37.5 (8-20); Calcium 8.2 mg/dL (8.6-10.3); EGFR Non-African American 105.8 (>60); Potassium 3.9 mmol/L (3.5-5.0)
[2019-10-25 08:12] VITALS: BP 158/88
== END 2019-10-25 09:20 | disposition home or self-care (01) | DRG 308 ==
LOC: ED 17:10 → SSU 21:08 → MEDTELE 10-23 02:37 → SSU 10-23 09:53
PROVIDERS: ADMIT Nurse Practitioner; ATTEND Internal Medicine
PROC: 0QS604Z Reposition Right Upper Femur with Internal Fixation Device, Open Approach (ICD-10-PCS; principal; 2019-10-22)
DX: S72.141A Displaced intertrochanteric fracture of right femur, initial encounter for closed fracture (principal); I48.0 Paroxysmal atrial fibrillation; I10 Essential (primary) hypertension; M19.072 Primary osteoarthritis, left ankle and foot; M81.0 Age-related osteoporosis without current pathological fracture; E03.9 Hypothyroidism, unspecified; Z79.01 Long term (current) use of anticoagulants; Z79.890 Hormone replacement therapy; Z88.2 Allergy status to sulfonamides; Z88.1 Allergy status to other antibiotic agents; Z88.5 Allergy status to narcotic agent; Z72.89 Other problems related to lifestyle; Z95.0 Presence of cardiac pacemaker; W01.0XXA Fall on same level from slipping, tripping and stumbling without subsequent striking against object, initial encounter; Y93.01 Activity, walking, marching and hiking; Y92.89 Other specified places as the place of occurrence of the external cause